=== PATIENT | female | born 1945 | race Caucasian/White ===

== ENCOUNTER → 2016-12-05 10:49 | Outpatient (CLI) | payer MEDICARE, OTHER ==
[2016-05-05 12:11] VITALS: BMI 24.9
[~2016-12-05 10:49] MED LIST: AMBIEN5 MG PO; BAYER CHEWABLE81 MG PO; BIOTIN5 MG PO; CITRACAL + D E1 EACH PO; CO Q-10200 MG PO; DEXILANT60 MG PO; GLUCOPHAGE500 MG PO; HYZAAR 50-12.51 TAB PO; KLOR-CON M2020 MEQ PO; LEXAPRO20 MG PO; PREDNISONE20 MG PO; VITAMIN D31000 UNI2 PO; ZANTAC150 MG PO; ZOCOR20 MG PO
== END | disposition home or self-care (01) ==
LOC: D.CT 10:49
DX: D86.9 Sarcoidosis, unspecified (principal)

== ENCOUNTER 2016-12-20 10:41 | Outpatient (CLI) | payer MEDICARE, OTHER ==
[~2016-12-20] VITALS: Ht 147.3 cm; Wt 53.6 kg
[2016-12-20 11:13] VITALS: BP 152/86; Ht 147.3 cm; Wt 53.6 kg
--- NOTE | 2016-12-20 11:15 | NUR ---
1105- PROLIA INJECTION TO LEFT ARM LOT#: [id number] EXP:03/06
== END 2016-12-20 11:24 | disposition home or self-care (01) ==
LOC: D.OPS 10:41
DX: M81.0 Age-related osteoporosis without current pathological fracture (principal)

== ENCOUNTER 2017-03-29 14:35 | Outpatient (CLI) | payer MEDICARE, OTHER ==
[~2017-03-29] VITALS: Ht 147.3 cm; Wt 52.3 kg
--- NOTE | ~2017-03-29 | HEMODYNAMI ---
PATIENT:JENNA MCGOWAN MEDICAL RECORD: [id number] : 43 LOCATION[facility] [id number] ADMISSION DATE: 03/29/17 Generatedon:03/30/20178:49 Patient name: JENNA MCGOWAN Patient #: [id number] SSN: DO B: 1945 Date of study: 03/30/2017 Page: Of Hemodynamic Procedure Report Patient Data Patient Demographics Procedure consent was obtained First Name: JENNA Gender: Female Last Name: ROSLYN : 1945 Middle Initial: C Age: 72 year(s) Patient #: [id number] Race: Unknown Additional ID: [id number] Contact details Address: [facility], [facility] [place] State: [place] City: [place] Zip code: [address] Past Medical History Allergies: No known allergies Admission Admission Data Admission Date: 03/29/2017 Admission Time: 14:35 Room #: 2120 Lab Results Lab Result Date: 03/30/2017 Lab Result Time: 0:00 Biochemistry Name Units Result Min Max BUN mg/dl 19 --(----)*- 7 18 Creatinine mg/dl 1.2 --(---*)-- 0.6 1.3 CBC Name Units Result Min Max Hemoglobin g/dl 15.4 --(-*--)-- 13.5 17.5 Procedure Procedure Types Cath Procedure Diagnostic Procedure [facility] w/Coronaries PCI Procedure Coronary Stent Initial Miscellaneous Procedures Moderate Sedation up to 15 minutes Procedure Description Procedure Date Procedure Date: 03/30/2017 Procedure Start Time: 8:25 Procedure End Time: 8:49 Procedure Staff Name Function Damian Bai MD Performing Physician Dell Buckley RT Scrub Yasmeen Goss RN Nurse Dhruv Monterroso RT Monitor Procedure Data Cath Procedure Fluoroscopy Diagnostic fluoroscopy Total fluoroscopy Time: 3.6 time: 3.6 min min Diagnostic fluoroscopy Total fluoroscopy dose: 424 dose: 424 mGy mGy Contrast Material Contrast Material Type Amount (ml) Isovue 300 81 Entry Location Entry Primary Successful Side Size Upsize Upsize Entry Closure Succes sful Closure Location (Fr) 1 (Fr) 2 (Fr) Remarks Device Remarks Femoral Right 5 Fr 6 Fr artery Short Diagnostic catheters Device Type Used For End Catheter Placement Cordis 5Fr Pigtail LV Angiography Catheter (MP) Cordis 5Fr JL 4.0 Left Coronary Catheter (MP) Angiography Cordis 5Fr 3DRC Catheter Right Coronary (MP) Angiography Procedure Complications No complications Procedure Medications Medication Administration Route Dosage Oxygen NC 2 l/min Heparin Flush Bag added to field 2 bags (1000units/500ml NS) Lidocaine 2% added to field 20 Heparin Bolus I.V. 4000 units Versed I.V. 1 mg Fentanyl I.V. 50 mcg Fentanyl I.V. 50 mcg Versed I.V. 1 mg Versed I.V. 1 mg Fentanyl I.V. 50 mcg Fentanyl I.V. 50 mcg Plavix P.O. 75 mg Hemodynamics Rest HGB: 15.4 (g/dl) Heart Rate: 85 (bpm) Snapshots Pre Cath Intra NCS Post Cath Vital Signs Time Heart Resp SPO2 NIBP (mmHg) Rhythm Pain Sedation Rate (ipm) (%) Status Level (bpm) 7:57:53 89 19 99 140/76(105) NSR 0 (11) 10(A) , No pain 8:02:07 86 16 99 125/67(100) NSR 0 (11) 10(A) , No pain 8:06:15 85 16 99 119/67(94) NSR 0 (11) 10(A) , No pain 8:10:25 82 15 98 107/59(85) NSR 0 (11) 10(A) , No pain 8:14:29 82 16 98 96/63(77) NSR 0 (11) 10(A) , No pain 8:18:28 83 16 95 97/58(79) NSR 0 (11) 10(A) , No pain 8:22:26 85 16 95 116/70(93) NSR 0 (11) 10(A) , No pain 8:26:28 87 18 96 127/78(98) NSR 0 (11) 10(A) , No pain 8:30:33 89 17 95 130/80(111) NSR 0 (11) 9(A) , No pain 8:34:41 75 18 96 126/72(104) NSR 0 (11) 9(A) , No pain 8:38:59 90 16 95 128/81(106) NSR 0 (11) 10(A) , No pain 8:43:05 92 15 93 138/76(107) NSR 0 (11) 10(A) , No pain 8:47:15 91 8 94 133/79(111) NSR 0 (11) 10(A) , No pain Medications Time Medication Route Dose Verified Delivered Reason Notes Effectiveness by by 7:56:25 Oxygen NC 2 Damian Yasmeen used for l/min Bhumika Goss RN procedure 7:56:35 Heparin Flush added 2 Damian Damian used for Bag to bags Bhumika Bai MD procedure (1000units/500ml field NS) 7:56:43 Lidocaine 2% added 20ml Damian Damian used for to vial Bhumika Bai MD procedure field 8:23:29 Versed I.V. 1 mg Damian Yasmeen for sedation Bhumika Goss RN 8:23:47 Fentanyl I.V. 50 Damian Yasmeen for sedation mcg Bhumika Goss RN 8:25:57 Fentanyl I.V. 50 Damian Yasmeen for sedation mcg Bhumika Goss RN 8:26:03 Versed I.V. 1 mg Damian Yasmeen for sedation Bhumika Goss RN 8:28:10 Fentanyl I.V. 50 Damian Yasmeen for sedation mcg Bhumika Goss RN 8:28:13 Versed I.V. 1 mg Damian Yasmeen for sedation Bhumika Goss RN 8:30:12 Fentanyl I.V. 50 Damian Yasmeen for sedation mcg Bhumika Goss RN 8:30:27 Heparin Bolus I.V. 4000 Damian Yasmeen for dose units Bhumika Goss RN anticoagulation verified with dr bai 8:40:02 Plavix P.O. 75 mg Damian Yasmeen for Bhumika Goss RN antiplatelet therapy Procedure Log Time Note 7:31:19 ACC Patient presents with Unstable Angina CCS Anginal Class 3--Marked limitation of physical activity, angina occurs with ordinary activity.. 7:31:21 Diagnostic Cath status Urgent 7:31:22 Dhruv Monterroso RT(R) sent for patient. Start room use. 7:31:24 Time tracking: Regular hours 7:31:28 Plan of Care:Hemodynamics will remain stable., Cardiac rhythm will remain stable., Comfort level will be maintained., Respiratory function will remain adequate., Patient/ family verbilizes understanding of procedure., Procedure tolerated without complication., Recovers from procedure without complications.. 7:32:01 Lab Result : BUN 19 mg/dl 7:32: Lab Result : Hemoglobin 15.4 g/dl 7:32: Lab Result : Creatinine 1.2 mg/dl 7:49:21 Patient received from PCU to CCL 2 Alert and oriented. Tansferred to table in Supine position. 7:49:22 Warm blankets applied, and abril hugger turned on for patient comfort. 7:49:23 Correct patient and procedure confirmed by team. 7:49:24 Signed procedure consent form obtained from patient. 7:49:24 ECG and BP/O2 sat monitors applied to patient. 7:56:25 Oxygen 2 l/min NC was administered by Yasmeen Goss RN; used for procedure; 7:56:35 Heparin Flush Bag (1000units/500ml NS) 2 bags added to field was administered by Damian Bai MD; used for procedure; 7:56:43 Lidocaine 2% 20ml vial added to field was administered by Damian Bai MD; used for procedure; 7:56:48 Vital chart was started 7:56:49 Baseline sample Acquired. 7:56:53 Rhythm: sinus rhythm 7:56:55 Full Disclosure recording started 8:04:25 H&P Date Dictated: 03/29/2017 Within 30 days and on chart.. 8:04:26 Pre-procedure instructions explained to patient. 8:04:27 Pre-op teaching completed and patient verbalized understanding. 8:04:30 Family in patients room. 8:04:47 Patient NPO since Midnight. 8:04:56 Patient allergic to No known allergies 8:04:58 Is the patient allergic to Iodine/contrast media? No. 8:05:03 Is patient on blood thinner?Yes 8:05:06 ACC The patient was administered the following blood thiners within the last 24 hours: ACCPlavix 8:05:09 Patient diabetic? No. 8:05:10 ----Pre-sedation anethsthesia assessment.---- 8:05:12 Previous problem with sedation/anesthesia? No ? 8:05:14 Snore? No 8:05:15 Sleep apnea? No 8:05:16 Deviated septum? No 8:05:18 Opens mouth fully? Yes 8:05:19 Sticks out tongue? Yes 8:05:21 Airway obstruction? No ? 8:05:24 Dentures? No ? 8:05:27 Pre procedure: right dorsailis pedis pulse 1+ Palpable, but thready & weak; easily obliterated 8:05:40 Patient pain scale 0/10 no CP RIGHT NOW. 8:05:49 IV patent on arrival in left forearm with 0.9% NaCl at 10ml/hr. 8:05:51 Lab results completed and on chart. 8:05:54 Right groin area was prepped with chlora-prep and draped in sterile fashion 8:05:55 Alarms reviewed by R. N. 8:05:56 Sharps counted by scrub and verified by R.N. 8:06:25 Use device set Femoral Dx 8:06:26 Acist Syringe opened to sterile field. 8:06:27 Bag Decanter opened to sterile field. 8:06:27 Medline Cath Pack opened to sterile field. 8:06:28 Terumo 5Fr [place] Sheath opened to sterile field. 8:06:28 St Devaughn 260cm J .035 wire opened to sterile field. 8:06:29 Acist Hand Control opened to sterile field. 8:06:30 Acist Manifold opened to sterile field. 8:06:30 Diagnostic Infinity 5Fr Multipack catheter opened to sterile field. 8:06:30 Tegaderm 4 x 4 opened to sterile field. 8:08:58 Physician paged 8:12:32 Zero performed for pressure channel P1 8:12:35 Zero performed for pressure channel P1 8:23:19 --------ALL STOP TIME OUT------ 8:23:20 Final Timeout: patient, procedure, and site verified with staff and physician. All members of the team are in agreement. 8:23:29 Versed 1 mg I.V. was administered by Yasmeen [place] RN; for sedation; 8:23:47 Fentanyl 50 mcg I.V. was administered by Yasmeen Goss RN; for sedation; 8:24:02 Right groin site verified by team. 8:24:05 Physical assessment completed. ASA score P 2 - A patient with mild systemic disease as per Damian Bai MD. 8:24:08 Sedation plan: IV Moderate Sedation Versed, Fentanyl 8:25:14 Procedure started. 8:25:26 Local anesthetic to right femoral artery with Lidocaine 2% by Damian Bai MD.INITIAL ACCESS ONLY 8:25:34 A 5 Fr sheath was inserted into the Right Femoral artery 8::57 Fentanyl 50 mcg I.V. was administered by Yasmeen Goss RN; for sedation; 8::03 Versed 1 mg I.V. was administered by Yasmeen Goss RN; for sedation; 8::29 A Cordis 5Fr Pigtail Catheter (MP) was advanced over the wire and used for LV Angiography. 8:26:41 LV angiography performed. 8:26:43 LV gram done using BARR 8:27:15 EF : 55 % 8:27:16 Catheter removed. 8:27:23 A Cordis 5Fr JL 4.0 Catheter (MP) was advanced over the wire and used for Left Coronary Angiography. 8:27:29 LCA angiography performed. 8:28:10 Fentanyl 50 mcg I.V. was administered by Yasmeen Goss RN; for sedation; 8:28:13 Versed 1 mg I.V. was administered by Yasmeen Goss RN; for sedation; 8:28:55 Catheter removed. 8:29:03 A Cordis 5Fr 3DRC Catheter (MP) was advanced over the wire and used for Right Coronary Angiography. 8:29:06 RCA angiography performed. 8:29:18 Catheter removed. 8:30:10 ACC PCI Site: mRCA has 95% stenosis. 8:30:12 Fentanyl 50 mcg I.V. was administered by Yasmeen Goss RN; for sedation; 8:30:12 ACC Pre-intervention THEODORA Flow is 3. 8:30:17 Sheath upsized to a 6 Fr Short. 8:30:27 Heparin Bolus 4000 units I.V. was administered by Yasmeen Goss RN; for anticoagulation; dose verified with dr bai 8:30:44 Terumo 6Fr [place] Sheath opened to sterile field. 8:30:45 Diggs Whisper J 300cm 0.014 guide wire opened to sterile field. 8:30:45 Zeptor BasixCompak Inflation Kit opened to sterile field. 8:30:45 Medtronic Launcher 6Fr AR 1.0 SH guide catheter opened to sterile field. 8:30:53 6 Fr AR 1 SH guide catheter was inserted over the wire 8:31:35 WHISPER wire advanced. 8:33:00 Inflation number: 1 A Mozec Rx 2.5 x 20 balloon was prepped and advanced across the Mid RCA, then inflated to 13 STELLA for 0:07 (min:sec). 8:33:11 Inflation number: 2 The Mozec Rx 2.5 x 20 balloon was reinflated across the Mid RCA, to 13 STELLA for 0:10 (min:sec). 8:34:59 Balloon removed over the wire. 8:35:51 Inflation Number: 3 A Medtronic Resolute 2.5 X 26 stent was prepped and advanced across the Mid RCA. The stent was deployed at 13 STELLA for 0:10 (min:sec). 8:35:54 Stent catheter was removed intact over wire. 8:35:55 Wire removed. 8:35:55 Guide catheter removed. 8:36:01 Contrast amount:Isovue 300 81ml. 8:36:07 Cordis 6Fr Exoseal opened to sterile field. 8:36:09 Procedure ended.(Physican Out) 8:36:22 Fluoroscopy time 03.60 minutes. 8:36:26 Fluoroscopy dose: 424 mGy 8:36:26 Flurop Dose total: 424 8:36:28 Sharps counted by scrub and verified by R.N. 8:36:29 Insertion/operative site no bleeding no hematoma. 8:36:31 Post-op/insertion site Right Femoral artery dressed using a 4 x 4 and Tegaderm. 8:36:34 Post right femoral artery:stable 8:36:36 Post Procedure Pulses reassessed and unchanged 8:36:38 Post procedure: right dorsailis pedis pulse 1+ Palpable, but thready & weak; easily obliterated. 8:36:41 Post procedure rhythm: sinus rhythm 8:36:43 Post procedure instruction explained to patient.Patient verbalizes understanding. 8:40:02 Plavix 75 mg P.O. was administered by Yasmeen Goss RN; for antiplatelet therapy; 8:40:40 St Devaughn Femstop Arch Gold opened to sterile field. 8:40:50 Procedure type changed to Cath procedure, Diagnostic procedure, LHC, C w/Coronaries, PCI procedure, Coronary Stent Initial, Miscellaneous Procedures, Moderate Sedation up to 15 minutes 8:41:13 Procedure and supply charges have been captured, reviewed, submitted and are correct. 8:42:07 Femstop placed over the right femoral artery at 128 mmHg. Hemostasis achieved. 8:43:05 FEMSTOP PLACED ON RFA BECAUSE PT HAS RESTLESS LEG SYDROME AND A BAD BACK/HEMATOMA PREVENTION DUE TO MOVING 8:43:18 Procedure Complication : No complications 8:48:40 Vital chart was stopped 8:48:41 See physician's report for complete and final results. 8:49:14 Report given to PCU. 8:49:18 Patient transfered to PCU with Bed. 8:49:20 Procedure ended. 8:49:20 Full Disclosure recording stopped 8:49:23 End room use (Document Last) Intervention Summary Intervention Notes Time ActionType Lesion and Equipment Action# Pressure Duration Attributes Used 8:33:00 Inflate Mid RCA Mozec Rx 1 13 00:07 balloon 2.5 x 20 balloon 8:33:11 Reinflate Mid RCA Mozec Rx 2 13 00:10 balloon 2.5 x 20 balloon 8:35:51 Place stent Mid RCA Medtronic 3 13 00:10 Resolute 2.5 X 26 stent Device Usage Item Name Manufacture Quantity Catalog Hospital Part Current Minimal Lot# / Number Charge Number Stock Stock Serial# Code Acist Acist 1 82598 240583 190174 976943 20 Syringe [employer] Inc Bag Microtek 1 2002S 460003 41319 642290 5 [employer]. Medline Cardinal 1 [id number] 694328 54067 182456 5 Cath Digital Lifeboat Terumo 5Fr Terumo 1 [id number] 402654 067223 151564 [address] Devaughn 1 106761 671856 482210 743547 30 260cm J .035 wire Acist Hand Acist 1 66728 120964 858852 225103 5 [employer] Acist Acist 1 75035 173181 402578 282557 5 MyVerse [employer] Inc Diagnostic Cardinal 1 [id number] 353199 68496 870465 30 Infinity Health 5Fr Multipack catheter Tegaderm 4 3M 1 1626W 337251 503622 087236 5 x 4 Cordis 5Fr Cardinal 1 161366 5 Pigtail Health Catheter (MP) Cordis 5Fr Cardinal 1 926220 5 JL 4.0 Health Catheter (MP) Cordis 5Fr Cardinal 1 351686 5 3DRC Health Catheter (MP) Terumo 6Fr Terumo 1 NUI299 340058 179148 088279 40 [place] Sheath Diggs Diggs 1 [id number] 643594 443930 884398 5 Whisper J Vascular 300cm 0.014 guide wire Merit Merit 1 [id number] 836425 524232 892688 15 QualQuant SignalsMountain Point Medical CenterTableApp Medical Inflation Kit Medtronic Medtronic 1 [id number] 784920 63428 129266 1 Launcher 6Fr AR 1.0 SH guide catheter Mozec Rx Cardinal 1 [id number] 344911 23005 347093 5 UMOA34 2.5 x 20 Health balloon Medtronic Medtronic 1 [id number] 000942 013986 3 [id number] Resolute 2.5 X 26 stent Cordis 6Fr Cardinal 1 EX600 290962 043134 956833 10 [employer] [facility] [facility] Dev[address] St Devaughn 1 [id number] 266874 985685 124905 5 Femstop Arch Gold Signature Audit [place] Stage Time Signature Unsigned Intra-Procedure 03/30/2017 Dhruv Monterroso 8:49:47 AM RT(R) Signatures Monitor : Dhruv Monterroso RT Signature : Date : Time : [facility] [address] [place], [place] [address]
--- NOTE | ~2017-03-29 | DS ---
PATIENT:JENNA MCGOWAN :43 MEDICAL RECORD: [id number] DISCHARGE SUMMARY ADMISSION DATE: 03/29/17 DISCHARGE DATE: 03/31/17 DISCHARGE SUMMARY PROBLEM LIST: 1. Unstable angina. 2. Coronary artery disease. 3. Percutaneous transluminal coronary angioplasty stent right coronary artery and left circumflex this admission. HOSPITAL COURSE: The patient presents with unstable angina. She was found to have two vessel disease of the right coronary artery and left circumflex. She underwent successful percutaneous transluminal coronary angioplasty stent of both territories. PLAN: She was discharged home with the addition of aspirin and Plavix to her medical regimen. She will follow up with [facility] in one month. CHAD FOSTER MD CC: [id number] DICTATION DATE: 03/31/17 0800 AGENCY LEGAL COUNSEL: RAMAKRISHNA 03/31/17 1546 DEP CLI 03/31/17 [facility] [address] [place] [address]
--- NOTE | ~2017-03-29 | PRO ---
PATIENT:JENNA MCGOWAN MEDICAL RECORD: [id number] : 43 LOCATION:D.OPS ADMISSION DATE: 03/29/17 PROCEDURE PERFORMED BY: CHAD FOSTER MD PROCEDURE DATE: 03/31/17 PROCEDURES: 1. Percutaneous transluminal coronary angioplasty stent left circumflex. 2. Selective coronary angiography. INDICATION: 1. Angina. 2. Coronary artery disease. PROCEDURE IN DETAIL: After informed consent was obtained and after detailed explanation of risks, benefits, as well as alternative therapies, the patient elected to proceed with angiogram and angioplasty. The right radial area was prepped and draped in a normal sterile fashion. The right radial artery was cannulated via modified Seldinger technique with placement of 6-Marshallese sheath. All catheters exchanged through this sheath. FINDINGS: The left circumflex has a 90% stenosis in the mid distal vessel. This was addressed with a 3.0 X 15 millimeter Sahil stent. The result was 0% residual stenosis. OVERALL IMPRESSION: Successful percutaneous transluminal coronary angioplasty stent of the left circumflex going from 90% initial stenosis to 0% residual stenosis. CHAD FOSTER MD CC: [id number] DICTATION DATE: 03/31/172135 TALLIER: JMADELEINE 03/31/172134 DEP CLI 03/31/17 [facility] [address] [id number]
--- NOTE | ~2017-03-29 | OP ---
PATIENT NAME: JENNA MCGOWAN MEDICAL RECORD: [id number] :43 LOCATION:D.M2 D.2119 ADMISSION DATE: SURGEON: CHAD FOSTER MD OPERATION DATE: 03/30/17 PROCEDURES: 1. Percutaneous transluminal coronary angioplasty stent right coronary artery. 2. Left heart catheterization. 3. Selective coronary angiography. 4. Left ventriculogram. INDICATION: Unstable angina. PROCEDURE IN DETAIL: After informed consent was obtained and after detailed explanation of risks, benefits, as well as alternative therapies, the patient elected to proceed with angiogram and angioplasty. The right femoral area was prepped and draped in a normal sterile fashion. The right femoral artery was cannulated via modified Seldinger technique with placement of 6-Maltese sheath. All catheters exchanged through this sheath. FINDINGS: Left ventriculogram was performed in standard 30 degree BARR view, reveals good cardiac wall motion throughout all segments. Overall ejection fraction estimated 55-60%. SELECTIVE CORONARY ANGIOGRAPHY: 1. Left main is with no significant angiographic disease. 2. Left anterior descending has mild irregularities but no flow-limiting stenosis. 3. The left circumflex has an 80-90% stenosis in the mid vessel. 4. The right coronary artery has a 95% stenosis in the mid vessel. PTCA STENT OF THE RIGHT CORONARY ARTERY: The stent used was a 2.5 X 26 millimeter Resolute. The result was 0% residual stenosis. OVERALL IMPRESSION: Successful percutaneous transluminal coronary angioplasty stent of the right coronary artery going from 95% initial stenosis to 0% residual stenosis. PLAN: Will plan for percutaneous transluminal coronary angioplasty stent of the left circumflex in the near future. CHAD FOSTER MD CC: [id number] DICTATION DATE: 03/30/17 1400 TECHNICAL SOLUTIONS ENGINEER: DM 03/31/[address] [facility] [address] [place] [address]
--- NOTE | ~2017-03-29 | HEMODYNAMI ---
PATIENT:JENNA MCGOWAN MEDICAL RECORD: [id number] : 43 LOC[facility] [id number] ADMISSION DATE: 03/29/17 Generatedon:03/31/20179:28 Patient name: JENNA MCGOWAN Patient #: [id number] SSN: DO B: 1945 Date of study: 03/31/2017 Page: Of Hemodynamic Procedure Report Patient Data Patient Demographics Procedure consent was obtained First Name: JENNA Gender: Female Last Name: ROSLYN : 1945 Middle Initial: C Age: 72 year(s) Patient #: [id number] Race: Unknown Additional ID: [id number] Contact details Address: [facility] [employer] State: [place] City: [place] Zip code: [address] Past Medical History Allergies: No known allergies Admission Admission Data Admission Date: 03/29/2017 Admission Time: 14:35 Room #: 2120 Lab Results Lab Result Date: 03/30/2017 Lab Result Time: 0:00 Biochemistry Name Units Result Min Max BUN mg/dl 19 --(----)*- 7 18 Creatinine mg/dl 1.2 --(---*)-- 0.6 1.3 CBC Name Units Result Min Max Hemoglobin g/dl 15.4 --(-*--)-- 13.5 17.5 Procedure Procedure Types Cath Procedure PCI Procedure Coronary Stent Initial Miscellaneous Procedures Moderate Sedation up to 15 minutes Procedure Description Procedure Date Procedure Date: 03/31/2017 Procedure Start Time: 9:14 Procedure End Time: 9:27 Procedure Staff Name Function Damian Bai MD Performing Physician Dhruv Monterroso RT Scrub Yasmeen Goss RN Nurse Dell Buckley RT Monitor Procedure Data Cath Procedure Fluoroscopy Diagnostic fluoroscopy Total fluoroscopy Time: 2.9 time: 2.9 min min Diagnostic fluoroscopy Total fluoroscopy dose: 216 dose: 216 mGy mGy Contrast Material Contrast Material Type Amount (ml) Isovue 300 43 Entry Location Entry Primary Successful Side Size Upsize Upsize Entry Closure Walter ccessful Closure Location (Fr) 1 (Fr) 2 (Fr) Remarks Device Remarks Radial Right 6 Fr Mechanical artery Short Compression Estimated blood loss: 10 ml Procedure Complications No complications Procedure Medications Medication Administration Route Dosage Oxygen NC 2 l/min Heparin Flush Bag added to field 2 bags (1000units/500ml NS) Lidocaine 2% added to field 20 Fentanyl I.V. 50 mcg Radial Cocktail added to field 1 syringe (Verapomil 2mg/Nitro 400mcg/Heparin 1500units) Fentanyl I.V. 50 mcg Versed I.V. 1 mg Heparin Bolus I.V. 4000 units Radial Cocktail added to field 1 syringe (Verapomil 2mg/Nitro 400mcg/Heparin 1500units) Fentanyl I.V. 50 mcg Versed I.V. 1 mg Hemodynamics Rest HGB: 15.4 (g/dl) Heart Rate: 96 (bpm) Snapshots Pre Cath Intra NCS Post Cath Vital Signs Time Heart Resp SPO2 NIBP (mmHg) Rhythm Pain Status Sedation Rate (ipm) (%) Level (bpm) 8:49:57 96 18 98 163/90(130) NSR 7 (11) , Very 10(A) intense 8:54:15 96 17 97 163/82(113) NSR 5 (11) , Very 10(A) distressing 8:58:33 92 16 100 138/74(105) NSR 2 (11) , 10(A) Uncomfortable 9:02:43 94 15 100 135/77(106) NSR 0 (11) , No 10(A) pain 9:06:48 96 16 100 147/84(111) NSR 0 (11) , No 10(A) pain 9:11:00 97 14 100 137/77(112) NSR 0 (11) , No 10(A) pain 9:15:10 105 15 100 138/82(122) NSR 0 (11) , No 9(A) pain 9:19:18 97 16 97 85/51(61) NSR 0 (11) , No 9(A) pain 9:23:14 101 13 98 95/62(76) NSR 0 (11) , No 10(A) pain Medications Time Medication Route Dose Verified Delivered Reason Notes Effectiveness by by 8:49:03 Oxygen NC 2 l/min Damian Alvarezecca Per physician Bhumika Goss RN 8:49:12 Heparin Flush added 2 bags Damian Damian used for Bag to Bhumika Bai MD procedure (1000units/500ml field NS) 8:49:20 Fentanyl I.V. 50 mcg Damian Yasmeen for back pain pt c\ o 7/10 Bhumika Goss RN sciatic nerve pain. pt is unable to tolerate lying flat on table. pt has pillow elevating her left hip, also a towel roll placed under pt knees. pt upper body is elevated on wedge pillow, per pt request. Dr bai is aware of pt condition, and pain interventions. 8:49:20 Lidocaine 2% added 20ml Damian Damian used for to vial Bhumika Bai MD procedure field 8:52:41 Radial Cocktail added 1 Damian Damian used for (Verapomil to syringe Bhumika Bai MD procedure 2mg/Nitro field 400mcg/Heparin 1500units) 9:00:04 Fentanyl I.V. 50 mcg Damian Damian for back pain pt c\ o 5/10 Bhumika Bai MD sciatic nerve pain. pt is unable to tolerate lying flat on table. pt has pillow elevating her left hip, also a towel roll placed under pt knees. pt upper body is elevated on wedge pillow, per pt request. Dr bai is aware of pt condition, and pain interventions. 9:09:14 Versed I.V. 1 mg Damian Yasmeen for sedation Bhumika Goss RN 9:12:03 Versed I.V. 1 mg Damian Yasmeen for sedation Bhumika Goss RN 9:12:45 Fentanyl I.V. 50 mcg Damian Yasmeen for sedation Bhumika Goss RN 9:15:00 Radial Cocktail added 1 Damian Yasmeen used for (Verapomil to syringe Bhumika Goss RN procedure 2mg/Nitro field 400mcg/Heparin 1500units) 9:17:36 Heparin Bolus I.V. 4000 Damian Yasmeen for dose verified units Bhumika Goss RN anticoagulation with dr bai Procedure Log Time Note 8:20:21 Dhruv Monterroso RT(R) sent for patient. Start room use. 8:28:22 Time tracking: Regular hours 8:28:25 Plan of Care:Hemodynamics will remain stable., Cardiac rhythm will remain stable., Comfort level will be maintained., Respiratory function will remain adequate., Patient/ family verbilizes understanding of procedure., Procedure tolerated without complication., Recovers from procedure without complications.. 8:39:13 Patient received from PCU to CCL 2 Alert and oriented. Tansferred to table in Supine position. 8:39:14 Warm blankets applied, and abril hugger turned on for patient comfort. 8:39:14 Correct patient and procedure confirmed by team. 8:39:15 Signed procedure consent form obtained from patient. 8:39:16 ECG and BP/O2 sat monitors applied to patient. 8:48:51 Vital chart was started 8:49:03 Oxygen 2 l/min NC was administered by Yasmeen Goss RN; Per physician; 8:49:12 Heparin Flush Bag (1000units/500ml NS) 2 bags added to field was administered by Damian Bai MD; used for procedure; 8:49:20 Fentanyl 50 mcg I.V. was administered by Yasmeen Goss RN; for back pain; pt c\o 7/10 sciatic nerve pain. pt is unable to tolerate lying flat on table. pt has pillow elevating her left hip, also a towel roll placed under pt knees. pt upper body is elevated on wedge pillow, per pt request. Dr bai is aware of pt condition, and pain interventions. 8:49:20 Lidocaine 2% 20ml vial added to field was administered by Damian Bai MD; used for procedure; 8:52:41 Radial Cocktail (Verapomil 2mg/Nitro 400mcg/Heparin 1500units) 1 syringe added to field was administered by Damian Bai MD; used for procedure; 9:00:04 Fentanyl 50 mcg I.V. was administered by Damian Bai MD; for back pain; pt c\o 5/10 sciatic nerve pain. pt is unable to tolerate lying flat on table. pt has pillow elevating her left hip, also a towel roll placed under pt knees. pt upper body is elevated on wedge pillow, per pt request. Dr bai is aware of pt condition, and pain interventions. 9:04:29 Baseline sample Acquired. 9:04:33 Rhythm: sinus rhythm 9:04:35 Full Disclosure recording started 9:04:41 H&P Date Dictated: 03/30/2017 Within 30 days and on chart.. 9:04:42 Pre-procedure instructions explained to patient. 9:04:42 Pre-op teaching completed and patient verbalized understanding. 9:04:44 Family in patients room. 9:04:45 Patient NPO since Midnight. 9:04:47 Is the patient allergic to Iodine/contrast media? No. 9:04:51 Is patient on blood thinner?Yes 9:04:53 ACC The patient was administered the following blood thiners within the last 24 hours: ACCPlavix 9:04:56 Patient diabetic? No. 9:05:00 Patient not . Patient is over age 55. 9:05:01 Previous problem with sedation/anesthesia? No ? 9:05:02 Snore? No 9:05:03 Sleep apnea? No 9:05:09 Deviated septum? No 9:05:10 Opens mouth fully? Yes 9:05:11 Sticks out tongue? Yes 9:05:13 Airway obstruction? No ? 9:05:16 Dentures? No ? 9:05:50 Pre procedure: left dorsailis pedis pulse 1+ Palpable, but thready & weak; easily obliterated 9:05:52 Modified Sylvester's test Ulnar < 7 seconds 9:05:54 Patient pain scale 0/10 ?. 9:05:58 IV patent on arrival in left forearm with 0.9% NaCl at KVO. 9:05:59 Lab results completed and on chart. 9:06:03 Right Radial & Left Groin area was prepped with chlora-prep and draped in sterile fashion 9:06:04 Alarms reviewed by R. N. 9:06:05 Sharps counted by scrub and verified by R.N. 9:06:08 Use device set Radial PCI 9:06:11 Tegaderm 4 x 4 opened to sterile field. 9:06:11 Acist Manifold opened to sterile field. 9:06:13 Acist Syringe opened to sterile field. 9:06:13 Acist Hand Control opened to sterile field. 9:06:13 Bag Decanter opened to sterile field. 9:06:14 Medline Cath Pack opened to sterile field. 9:06:14 Merit BasixCompak Inflation Kit opened to sterile field. 9:06:15 Terumo 6Fr Slender Glidesheath opened to sterile field. 9:06:15 MBrace Wrist Support opened to sterile field. 9:06:15 St Devaughn 260cm J .035 wire opened to sterile field. 9:06:16 Diggs Whisper J 300cm 0.014 guide wire opened to sterile field. 9:08:51 --------ALL STOP TIME OUT------ 9:08:51 Final Timeout: patient, procedure, and site verified with staff and physician. All members of the team are in agreement. 9:09:11 Right Radial & Left Groin site verified by team. 9::14 Versed 1 mg I.V. was administered by Yasmeen Goss RN; for sedation; 9::14 Physical assessment completed. ASA score P 2 - A patient with mild systemic disease as per Damian Bai MD. 9:09:16 Sedation plan: IV Moderate Sedation Versed, Fentanyl 9:12:03 Versed 1 mg I.V. was administered by Yasmeen Goss RN; for sedation; 9:12:45 Fentanyl 50 mcg I.V. was administered by Yasmeen Goss RN; for sedation; 9:14:10 Procedure started. 9:14:18 Local anesthetic to right radial artery with Lidocaine 2% by Damian Bai MD.INITIAL ACCESS ONLY 9:14:58 A 6 Fr Short sheath was inserted into the Right Radial artery 9:15:00 Radial Cocktail (Verapomil 2mg/Nitro 400mcg/Heparin 1500units) 1 syringe added to field was administered by Yasmeen Goss RN; used for procedure; 9:15:09 Zero performed for pressure channel P1 9:15:11 Zero performed for pressure channel P1 9:15:23 Cordis 6FR XBLAD 3.5 guide catheter opened to sterile field. 9:15:55 6 Fr XBLAD 3.5 guide catheter was inserted over the wire 9:16:25 Glidewire used to advance catheter. 9:16:54 Terumo ADVANTAGE 260CM glide wire opened to sterile field. 9:17:36 Heparin Bolus 4000 units I.V. was administered by Yasmeen Goss RN; for anticoagulation; dose verified with dr bai 9:18:05 ACC PCI Site: dCirc has 90% stenosis. 9:18:08 ACC Pre-intervention THEODORA Flow is 3. 9:18:42 Whisper wire advanced. 9:21:00 Wire advanced across lesion. 9:21:21 Inflation Number: 1 A Sahil OTW 3.0 x 15 stent was prepped and advanced across the Dist CX. The stent was deployed at 9 STELLA for 0:10 (min:sec). 9:21:40 ACC Post-intervention THEODORA Flow is 3. 9:21:41 Stent catheter was removed intact over wire. 9:21:42 Wire removed. 9:21:42 Guide catheter removed. 9:21:52 Sheath removed intact; hemostasis achieved with Mechanical Compression to the Right Radial artery. 9:21:59 Terumo TR Band Standard opened to sterile field. 9:22:03 Procedure ended.(Physican Out) 9:22:14 Fluoroscopy time 02.90 minutes. 9:22:18 Flurop Dose total: 216 9:22:18 Fluoroscopy dose: 216 mGy 9:22:24 Contrast amount:Isovue 300 43ml. 9:22:29 Sharps counted by scrub and verified by R.N. 9:22:32 TR band inflated with 12cc of air. 9:22:33 Insertion/operative site no bleeding no hematoma. 9:22:34 Post Procedure Pulses reassessed and unchanged 9:22:38 Post-procedure physical assessment completed. ASA score P 2 - A patient with mild systemic disease as per Damian Bai MD. 9:22:40 Post procedure rhythm: unchanged. 9:22:43 Estimated blood loss: 10 ml 9:22:45 Post procedure instruction explained to patient.Patient verbalizes understanding. 9:22:45 Patient needs reinforcement of post procedure teaching. 9:22:50 Procedure type changed to Cath procedure, PCI procedure, Coronary Stent Initial, Miscellaneous Procedures, Moderate Sedation up to 15 minutes 9:22:56 Procedure Complication : No complications 9:26:15 Procedure and supply charges have been captured, reviewed, submitted and are correct. 9:27:25 Vital chart was stopped 9:27:25 See physician's report for complete and final results. 9:27:26 Report given to PCU. 9:27:28 Patient transfered to PCU with Bed. 9:27:30 Procedure ended. 9:27:30 Full Disclosure recording stopped 9:27:33 End room use (Document Last) Intervention Summary Intervention Notes Time ActionType Lesion and Equipment Action# Pressure Duration Attributes Used 9:21:21 Place stent Dist CX [place] OTW 1 9 00:10 3.0 x 15 stent Device Usage Item Name Manufacture Quantity Catalog Hospital Part Current Minimal Lot# / Number Charge Number Stock Stock Serial# Code Tegaderm 4 3M 1 [id number] [id number] [id number] 5 x 4 Acist Acist 1 53559 347213 075319 663521 5 Manifold Medical Systems Inc Acist Acist 1 10869 506222 031292 421983 20 Syringe Medical Systems Inc Acist Hand Acist 1 41949 566850 883830 189728 5 Control Medical Systems [employer] Bag Microtek 1 2002S 594361 19403 236981 5 DecGlideTV Medical Inc. Medline Cardinal 1 [id number] 653381 82483 439613 5 Cath [facility] Merit 1 [id number] 160125 383665 072693 15 Sawerly Medical Inflation Kit Terumo 6Fr Terumo 1 [id number] 863790 123828 329427 40 Slender Glidesheath MBrace Advanced 1 140-0250-00 048349 57281 189836 5 Wrist V[address] Support Dynamics St Devaughn St Devaughn 1 175253 579328 885127 998866 30 260cm J .035 wire Cordis 6FR Cardinal 1 [id number] 895054 847239 011108 10 XBLAD 3.5 Health guide catheter Terumo Terumo 1 [id number] 828935 682748 5 ADVANTAGE 260CM glide wire [place] OTW Medtronic 1 [id number] 210423 165965 583542 5 [id number] 3.0 x 15 stent Terumo TR Terumo 1 [id number] 856185 931355 962683 40 Band Standard Diggs Diggs 1 [id number] 209354 591964 536013 5 Whisper J Vascular 300cm 0.014 guide wire Signature Audit [place] Stage Time Signature Unsigned Intra-Procedure 03/31/2017 Dell Buckley 9:28:13 AM RT(R) Signatures Monitor : Dell Buckley RT Signature : Date : Time : [address] [place] [address]
[2017-03-29 15:25] LABS: BASOPHILS 0.3 % (0-2); EOSINOPHILS 0.2 % (0-7); HEMOGLOBIN 15.4 g/dL (12-16); IMMATURE GRANULOCYTES 0.4 % (0-5); LYMPHOCYTES 17.6 % (15-50); MCH 31.5 pg (26.0-34.0); MEAN PLATELET VOLUME 11.5 fL (7.4-10.4); MONOCYTES 5.4 % (2-11); NEUTROPHILS 76.1 % (40-80); PLATELET COUNT 172 10x3/uL (130-400); RBC 4.89 10x6/uL (4.00-5.40); RDW 12.7 % (11.5-14.5); WBC 11.2 10x3/uL (4.8-10.8)
[2017-03-29 15:42] LABS: ALKALINE PHOSPHATASE 107 U/L (46-116); ALT (SGPT) 40 U/L (10-68); BILIRUBIN - TOTAL 0.77 mg/dL (0.2-1.3); CALC OSMOLALITY 294 mosm/kg (275-300); CALCIUM 9.5 mg/dL (8.5-10.1); CARBON DIOXIDE 20.4 mmol/L (21.0-32.0); CHLORIDE - SERUM 103 mmol/L (98-107); CKMB 3.2 U/L (0.0-3.6); CREATINE KINASE 122 UL (21-215); GLUCOSE 250 mg/dL (74-106); POTASSIUM - SERUM 3.3 mmol/L (3.5-5.1); PROTEIN - SERUM 6.9 g/dL (6.4-8.2); SODIUM 143 mmol/L (136-145); TROPONIN-I 0.045 ng/mL (0.000-0.060); UREA NITROGEN 19 mg/dL (7-18)
[2017-03-29 15:49] LABS: CREATININE - SERUM 1.2 mg/dL (0.6-1.3); eGFR NON AFRICAN AMERICAN 47 mL/min (90-120)
--- NOTE | 2017-03-29 17:59 | NUR ---
TRANSFER FROM ER BY W/C. RONALDINTED TO ROOM. CALL LIGHT IN REACH. WILL CONT. PLAN OF CARE.
[2017-03-29 18:20] VITALS: BMI 24.0
[2017-03-29] MEDS ORDERED: ULTRAM50 MG PO (18:33)
[2017-03-29] MEDS ORDERED: FOLATE0.4 MG PO (18:37)
[2017-03-29] MEDS ORDERED: PREDNISONE20 MG PO (18:38)
[2017-03-29] MEDS ORDERED: PROLIA INJ 660 MG/M1 IJ (18:41)
--- NOTE | 2017-03-29 20:11 | NUR ---
RESUMED CARE OF PT, LYING IN BED RESPIRATIONS EVEN AND UNLABORED ON 2LPM VIA NC. LEFT HAND SALINE LOCKED. 76 SR ON TELEMETRY. CALL LIGHT IN REACH. WILL CONTINUE TO MONITOR. SEE NURSE ASSESSMENT.
[2017-03-29 21:05] VITALS: BP 161/78
--- NOTE | 2017-03-29 23:45 | NUR ---
LEARNING SOLUTIONS SPECIALIST AT BEDSIDE TO OBTAIN VITALS, CALL LIGHT IN REACH. WILL CONTINUE WITH PLAN OF CARE.
[2017-03-30 01:19] VITALS: BP 160/88
[2017-03-30 06:18] VITALS: BP 119/52
--- NOTE | 2017-03-30 06:23 | NUR ---
NO CHANGES FROM PREVIOUS ASSESSMENT, UP TO SHOWER. LINENS CHANGED.
--- NOTE | 2017-03-30 07:06 | NUR ---
AM ROUNDS- PT IN BED, DENIES ANY NEEDS AT THIS TIME. LT HAND IV SL. BED LOW AND WHEELS LOCKED, BED RAILSX2, CALL LIGHT IN REACH, NAD NOTED, WILL CONTINUE TO MONITOR.
--- NOTE | 2017-03-30 07:45 | NUR ---
PRE-OP MEDS GIVEN AT THIS TIME. AND TAKEN TO LAB, NAD NOTED.
--- NOTE | 2017-03-30 09:00 | NUR ---
RECEIVED PT BACK TO ROOM 2119. FEMSTOP NOTED TO RT GROIN, PULSE PALPABLE, NO BLEEDING OR HEMATOMA NOTED TO SITE. VITAL SIGNS STABLE. PT STILL C/O PAIN TO HER HIP. 5435- PAGED DR. FOSTER FOR SOMETHING FOR PAIN. INFORMED HIM THAT PT STATED THAT SHE USUALLY TAKES TORADOL. NEW ORDER FOR TORADOL 20MG Q4PRN, AND NORCO 10MG Q4PRN.
--- NOTE | 2017-03-30 10:41 | NUR ---
NORCO 10MG GIVEN FOR PAIN LEVEL OF 5/10. PT REMINDED TO KEEP RT LEG STRAIGHT. PT DENIES ANY OTHER NEEDS AT THIS TIME. CALL LIGHT IN REACH, FAMILY AT BEDSIDE, NAD NOTED, WILL CONTINUE TO MONITOR.
[2017-03-30 12:14] VITALS: BP 103/59
[2017-03-30 12:19] VITALS: Ht 147.3 cm; Wt 52.3 kg
--- NOTE | 2017-03-30 13:40 | NUR ---
PT STATED THAT SHE TOLD ME THE WRONG NAME OF THE MEDICATIONS THAT SHE TAKES AT HOME. SHE TAKES TRAMADOL NOT TORODOL. WILL NOTIFY DR. FOSTER AND GET NEW ORDER FOR TRAMADOL INSTEAD OF TORODOL.
[2017-03-30 15:46] VITALS: BP 108/62
[2017-03-30 19:00] VITALS: BP 124/60
--- NOTE | 2017-03-30 19:35 | NUR ---
RESUMED CARE OF PT, LYING IN BED RESPIRATIONS EVEN AND UNLABORED ON 2LPM VIA NC. 84 SR ON TELEMETRY. LEFT HAND SALINE LOCKED. SMALL HEMATOMA NOTED TO RIGHT GROIN CATH SITE, STRONG PEDAL PULSE NOTED. PLAN OF CARE DISCUSSED, NPO AT MIDNIGHT. CALL LIGHT IN REACH. SEE NURSE ASSESSMENT.
[2017-03-31] VITALS: BP 136/65
[2017-03-31 04:00] VITALS: BP 157/71
--- NOTE | 2017-03-31 07:38 | NUR ---
ASSESSMENT DONE. DENIES NEEDS. FAMILY AT SIDE.
--- NOTE | 2017-03-31 07:56 | NUR ---
PUBLIC SPEAKING COACH AT BS ASSISTING WITH NEEDS. CALL LIGHT IN REACH. WILL CONT. PLAN OF CARE.
[2017-03-31 08:12] VITALS: BP 153/80
--- NOTE | 2017-03-31 08:45 | NUR ---
TO CHANGE MANAGEMENT COORDINATOR PER BED
--- NOTE | 2017-03-31 09:40 | NUR ---
RETURN FROM CAPONIZER PER BED, TR-BAND TO RT WRIST.FAMILY AT SIDE.
[2017-03-31] MEDS ORDERED: PLAVIX75 MG PO (10:37)
--- NOTE | 2017-03-31 11:01 | HP ---
PATIENT: JENNA MCGOWAN MEDICAL RECORD: [id number] ACCOUNT: [id number] LOCATION:[address]19 : 44 ADMISSION DATE: 03/29/17 HISTORY AND PHYSICAL EXAMINATION PROBLEM LIST: 1. Non-Q wave myocardial infarction. 2. Angina, unstable. 3. Hypertension. 4. Hyperlipidemia. 5. Family history of coronary artery disease. HISTORY OF PRESENT ILLNESS: The patient has no previous cardiac history herself. She began having chest pain this week. Her chest pain worsened today. She went to Dr. Dc's office. She has ST-T changes laterally. Her troponin is minimally elevated. She is not having chest pain now. Her blood pressure is still up. It was initially 200 systolically. It is now in the 180 systolic range. She does have a history of hypertension for which she is on losartan and hyperlipidemia for which she is on simvastatin. PHYSICAL EXAMINATION: HEAD, EYES, EARS, NOSE, AND THROAT: Benign. NECK: Supple. No jugular venous distention. Carotid upstroke plus two bilaterally without bruits. LUNGS: Overall clear to auscultation and percussion. HEART: Regular. Normal S1, normal S2. No S3, no S4. No murmurs. BONES, JOINTS, EXTREMITIES: No clubbing, cyanosis, or edema. OVERALL IMPRESSION: Chest pain, non-Q wave myocardial infarction. No doubt she has hemodynamically significant coronary artery disease. Will proceed with coronary angiography in the morning. Further care depends upon the findings of the angiography. CHAD FOSTER MD at 1101 CC: [id number] DICTATION DATE: 03/29/17 1200 [employer] DE[employer]: RAMAKRISHNA 03/30/17 0906 [facility] [address] [place] [place] [id number]
[2017-03-31 12:13] VITALS: BP 138/70
--- NOTE | 2017-03-31 13:50 | NUR ---
DC AND RX GIVEN TO PT
--- NOTE | 2017-03-31 14:52 | NUR ---
DC HOME PER PERSONAL CAR
== END 2017-03-31 14:53 | disposition home or self-care (01) ==
LOC: D.M2 14:35 → D.ER 14:35 → D.OPS 14:35 → D.M2 16:38 → EDSTATUS 03-30 10:45 → D.OPS 03-31 14:53
PROVIDERS: Emergency Medicine
DX: I25.110 Atherosclerotic heart disease of native coronary artery with unstable angina pectoris (principal); Z01.812 Encounter for preprocedural laboratory examination; R07.9 Chest pain, unspecified
CPT/HCPCS: 93458; C9600 ×2

== ENCOUNTER 2017-12-28 12:35 | Outpatient (CLI) | payer MEDICARE, OTHER ==
[~2017-12-28] VITALS: Ht 147.3 cm; Wt 47.7 kg
[~2017-12-28 12:35] MED LIST changes: +FOLATE0.4 MG PO; +PLAVIX75 MG PO; +PROLIA INJ 660 MG/M1 IJ; +ULTRAM50 MG PO
[2017-12-28 13:14] VITALS: BP 170/90; Ht 147.3 cm; Wt 47.7 kg
[2017-12-28] MEDS ORDERED: PROTONIX40 MG PO (13:19)
[2017-12-28] MEDS ORDERED: LEXAPRO10 MG PO (13:20)
== END 2017-12-28 13:25 | disposition home or self-care (01) ==
LOC: D.OPS 12:35
DX: M81.0 Age-related osteoporosis without current pathological fracture (principal)

== ENCOUNTER → 2018-02-26 08:47 | Outpatient (CLI) | payer MEDICARE, OTHER ==
[~2018-02-26] VITALS: Ht 147.3 cm; Wt 47.7 kg
--- NOTE | ~2018-02-26 | HEMODYNAMI ---
PATIENT:JENNA MCGOWAN MEDICAL RECORD: [id number] : 43 LOCATION:[facility] ADMISSION DATE: 02/26/18 Generatedon:02/26/201812:23 Patient name: JENNA MCGOWAN Patient #: [id number] SSN: DO B: 1945 Date of study: 02/26/2018 Page: Of Hemodynamic Procedure Report Patient Data Patient Demographics Procedure consent was obtained First Name: JENNA Gender: Female Last Name: ROSLYN : 1945 [facility] Initial: C Age: 73 year(s) Patient #: [id number] Race: Unknown Additional ID: [id number] Contact details Address: [address] State: [place] City: [place] Zip code: [address] Past Medical History Allergies: No known allergies Admission Admission Data Admission Date: 02/26/2018 Admission Time: 8:47 Lab Results Lab Result Date: 02/26/2018 Lab Result Time: 0:00 Biochemistry Name Units Result Min Max BUN mg/dl 16 --(---*)-- 7 18 Creatinine mg/dl 0.9 --(-*--)-- 0.6 1.3 CBC Name Units Result Min Max Hemoglobin g/dl 14.2 --(*---)-- 13.5 17.5 Procedure Procedure Types Cath Procedure Diagnostic Procedure [facility] w/Coronaries FFR/IVUS Intra-Coronary IVUS Initial PCI Procedure Coronary Stent Coronary Stent Initial Procedure Description Procedure Date Procedure Date: 02/26/2018 Procedure Start Time: 12:07 Procedure End Time: 12:21 Procedure Staff Name Function Damian Bai MD Performing Physician Yudy Miles RT Monitor Krzysztof Pop RN Nurse Thu Brown RT Scrub Procedure Data Cath Procedure Fluoroscopy Diagnostic fluoroscopy Total fluoroscopy dose: 254 dose: 254 mGy mGy Contrast Material Contrast Material Type Amount (ml) Isovue 300 72 Entry Location Entry Primary Successful Side Size Upsize Upsize Entry Closure Walter ccessful Closure Location (Fr) 1 (Fr) 2 (Fr) Remarks Device Remarks Radial Right 6 Fr Mechanical artery Short Compression Estimated blood loss: 10 ml Diagnostic catheters Device Type Used For End Catheter Placement DIAGNOSTIC [place] 110cm 5 Procedure Fr catheter ([id number]) Procedure Complications No complications Procedure Medications Medication Administration Route Dosage 0.9% NaCl I.V. 100 ml/hr Oxygen etCO2 Nasal cannula 2 l/min Heparin Flush Bag added to field 2 bags (1000units/500ml NS) Lidocaine 2% added to field 20 Radial Cocktail added to field 1 syringe (Verapomil 2mg/Nitro 400mcg/Heparin 1500units) Versed I.V. 1 mg Fentanyl I.V. 50 mcg Versed I.V. 0.5 mg Fentanyl I.V. 25 mcg Radial Cocktail I.A. 1 syringe (Verapomil 2mg/Nitro 400mcg/Heparin 1500units) Versed I.V. 0.5 mg Fentanyl I.V. 25 mcg Heparin Bolus I.V. 4000 units Integrilin (Bolus I.V. 4.5 ml 2mg/ml) Integrilin (Bolus wasted 5.5 ml 2mg/ml) Plavix P.O. 600 mg Hemodynamics Rest HGB: 14.2 (g/dl) Heart Rate: 75 (bpm) Snapshots Pre Cath Intra NCS Post Cath Vital Signs Time Heart Resp SPO2 etCO2 NIBP (mmHg) Rhythm Pain Sedation Rate (ipm) (%) (mmHg) Status Level (bpm) 12:02:05 78 17 100 32.8 171/81(119) NSR 0 (11) 10(A) , No pain 12:06:52 76 17 100 39.6 165/85(128) NSR 0 (11) 10(A) , No pain 12:11:34 87 12 98 1.4 142/64(98) NSR 0 (11) 10(A) , No pain 12:16:15 82 11 98 0 131/71(106) NSR 0 (11) 10(A) , No pain 12:21:14 98 9 39.6 Measuring NSR 0 (11) 10(A) , No pain 12:21:30 93 9 99 20.9 163/76(113) NSR 0 (11) 10(A) , No pain Medications Time Medication Route Dose Verified Delivered Reason Not es Effectiveness by by 12:02:01 0.9% NaCl I.V. 100 Krzysztof Krzysztof Per physician ml/hr Kiesha Pop RN RN 12:02:11 Oxygen etCO2 2 l/min Krzysztof Krzysztof Per physician Nasal Kiesha Pop cannula RN RN 12:02:22 Heparin Flush added 2 bags Krzysztof Krzysztof used for Bag to Lorigan Kiesha procedure (1000units/500ml field RN RN NS) 12:02:37 Lidocaine 2% added 20ml Krzysztof Krzysztof for local to vial Lorigan Lorigan anesthetic field RN RN 12:02:49 Radial Cocktail added 1 Krzysztof Krzysztof used for (Verapomil to syringe Lorigan Lorigan procedure 2mg/Nitro field RN RN 400mcg/Heparin 1500units) 12:05:08 Versed I.V. 1 mg Krzysztof Krzysztof for sedation Kiesha Pop RN RN 12:05:16 Fentanyl I.V. 50 mcg Krzysztof Krzysztof for sedation Kiesha Pop RN RN 12:07:47 Versed I.V. 0.5 mg Krzysztof Krzysztof for sedation Kiesha Pop RN RN 12:07:54 Fentanyl I.V. 25 mcg Krzysztof Krzysztof for sedation Kiesha Pop RN RN 12:08:44 Radial Cocktail I.A. 1 Krzysztof Damian for (Verapomil syringe Kiesha Bai MD vasodilation 2mg/Nitro RN 400mcg/Heparin 1500units) 12:09:50 Versed I.V. 0.5 mg Krzysztof Krzysztof for sedation Kiesha Pop RN RN 12:09:56 Fentanyl I.V. 25 mcg Krzysztof Krzysztof for sedation Kiesha Pop RN RN 12:15:05 Heparin Bolus I.V. 4000 Krzysztof Krzysztof for units Lorigan Kiesha anticoagulation RN RN 12:16:48 Integrilin I.V. 4.5 ml Krzysztof Krzysztof for (Bolus 2mg/ml) Kiesha Pop antiplatelet RN RN therapy 12:16:57 Integrilin wasted 5.5 ml Krzysztof Krzysztof to sharp's (Bolus 2mg/ml) Kiesha Pop RN RN 12:18:49 Plavix P.O. 600 mg Krzysztof Krzysztof for Kiesha Pop antiplatelet RN RN therapy Procedure Log Time Note 11::08 Time tracking: Regular hours (M-F 7:00 - 5:00) 11:11:13 Plan of Care:Hemodynamics will remain stable., Cardiac rhythm will remain stable., Comfort level will be maintained., Respiratory function will remain adequate., Patient/ family verbilizes understanding of procedure., Procedure tolerated without complication., Recovers from procedure without complications.. 11:39:57 Signed procedure consent form obtained from patient. 11:40:19 H&P Date Dictated: 02/19/2018 Within 30 days and on chart., H&P Addendum completed by physician on day of procedure. (MUST COMPLETE FOR ALL OUTPATIENTS). 11:41:01 Patient allergic to No known allergies 11:41:37 Lab Result : BUN 16 mg/dl 11:41:37 Lab Result : Creatinine 0.9 mg/dl 11:41:37 Lab Result : Hemoglobin 14.2 g/dl 11:45:12 Krzysztof Pop RN sent for patient. Start room use. 11:50:35 Patient received from Pre/Post Procedure Room to CCL 1 Alert and oriented. Tansferred to table in Supine position. 11:50:36 Warm blankets applied, and abril hugger turned on for patient comfort. 11:50:37 Correct patient and procedure confirmed by team. 11:50:38 ECG and BP/O2 sat monitors applied to patient. 12:01:04 Vital chart was started 12:01:05 Baseline sample Acquired. 12:01:09 Rhythm: sinus rhythm 12:01:10 Full Disclosure recording started 12:01:12 Pre-procedure instructions explained to patient. 12:01:12 Pre-op teaching completed and patient verbalized understanding. 12:01:14 Family in patients room. 12:01:15 Patient NPO since Midnight. 12:01:17 Is the patient allergic to Iodine/contrast media? No. 12:01:21 Is patient on blood thinner?No 12:01:23 Patient diabetic? Yes. 12:01:29 DIET CONTROLLED 12:01:33 Patient not . Patient is over age 55. 12:01:36 Previous problem with sedation/anesthesia? No ? 12:01:37 Snore? No 12:01:39 Sleep apnea? No 12:01:39 Deviated septum? No 12:01:45 Opens mouth fully? Yes 12:01:46 Sticks out tongue? Yes 12:01:47 Airway obstruction? No ? 12:01:49 Dentures? No ? 12:01:51 Modified Sylvester's test Ulnar < 7 seconds 12:01:53 Patient pain scale 0/10 ?. 12:01:59 IV patent on arrival in left forearm with 0.9% NaCl at [facility]. 12:02:01 0.9% NaCl 100 ml/hr I.V. was administered by Krzysztof Pop RN; Per physician; 12:02:11 Oxygen 2 l/min etCO2 Nasal cannula was administered by Krzysztof Pop RN; Per physician; 12:02:22 Heparin Flush Bag (1000units/500ml NS) 2 bags added to field was administered by Krzysztof Pop RN; used for procedure; 12:02:37 Lidocaine 2% 20ml vial added to field was administered by Krzysztof Pop RN; for local anesthetic; 12:02:49 Radial Cocktail (Verapomil 2mg/Nitro 400mcg/Heparin 1500units) 1 syringe added to field was administered by Krzysztof Pop RN; used for procedure; 12:03:05 Lab results completed and on chart. 12:03:08 Right Radial & Right Groin area was prepped with chlora-prep and draped in sterile fashion 12:03:12 Alarms reviewed by R. N. 12:03:12 Sharps counted by scrub and verified by R.N. 12:03:24 --------ALL STOP TIME OUT------ 12:03:25 Final Timeout: patient, procedure, and site verified with staff and physician. All members of the team are in agreement. 12:03:29 Right Radial & Right Groin site verified by team. 12:03:31 Physical assessment completed. ASA score P 2 - A patient with mild systemic disease as per Damian Bai MD. 12:03:36 Sedation plan: IV Moderate Sedation Medication:Versed, Fentanyl 12:03:39 Use device set Radial Dx or PCI 12:03:42 ACIST Syringe (84056) opened to sterile field. 12:03:43 Bag Decanter () opened to sterile field. 12:03:44 ACIST Hand Control (91340) opened to sterile field. 12:03:45 ACIST Manifold (07262) opened to sterile field. 12:03:46 Tegaderm 4 x 4 (1626W) opened to sterile field. 12:03:48 Medline Cath Pack ([id number]) opened to sterile field. 12:03:49 DIAGNOSTIC WIRE .035 260cm J wire (231836) opened to sterile field. 12:03:50 MBrace Wrist Support ([id number]) opened to sterile field. 12:03:51 SHEATH 6Fr Prelude Radial ([id number]) opened to sterile field. 12:05:08 Versed 1 mg I.V. was administered by Krzysztof Pop RN; for sedation; 12:05:16 Fentanyl 50 mcg I.V. was administered by Krzysztof Pop RN; for sedation; 12:07:35 Procedure started. 12:07:36 Zero performed for pressure channel P1 12:07:47 Versed 0.5 mg I.V. was administered by Krzysztof Pop RN; for sedation; 12:07:54 Fentanyl 25 mcg I.V. was administered by Krzysztof Pop RN; for sedation; 12:07:56 Local anesthetic to right radial artery with Lidocaine 2% by Damian Bai MD.INITIAL ACCESS ONLY 12:08:17 A 6 Fr Short sheath was inserted into the Right Radial artery 12:08:44 Radial Cocktail (Verapomil 2mg/Nitro 400mcg/Heparin 1500units) 1 syringe I.A. was administered by Damian Bai MD; for vasodilation; 12:08:45 A DIAGNOSTIC [place] 110cm 5 Fr catheter (254630) was advanced over the wire and used for Procedure. 12:09:40 Injector settings: Ml/sec: 7, Volume: 15, 12:09:48 LV gram done using BARR 12:09:50 Versed 0.5 mg I.V. was administered by Krzysztof Pop RN; for sedation; 12:09:56 Fentanyl 25 mcg I.V. was administered by Krzysztof Pop RN; for sedation; 12:10:10 EF : 60 % 12:10:41 LCA angiography performed. 12:11:19 RCA angiography performed. 12:11:22 Catheter removed. 12:11:56 INFLATOR Merit BasixCompak (TL1309) opened to sterile field. 12:12:02 GUIDE 6FR EBU 3.0 catheter ([id number]) opened to sterile field. 12:12:05 Zero performed for pressure channel P1 12:12:16 [place] IVUS Catheter (98156K) opened to sterile field. 12:12:21 CHOICE PT Extra Support 182cm wire ([id number]) opened to sterile field. 12:12:38 6 Fr EBU 3 guide catheter was inserted over the wire 12:13:11 CHOICE ES 182 wire advanced. 12:13:48 Wire advanced across lesion. 12:15:05 Heparin Bolus 4000 units I.V. was administered by Krzysztof Pop RN; for anticoagulation; 12:15:07 IVUS catheter advanced over wire. 12:15:09 IVUS pass to LAD lesion performed. 12:15:11 IVUS catheter removed over wire. 12:16:48 Integrilin (Bolus 2mg/ml) 4.5 ml I.V. was administered by Krzysztof Pop RN; for antiplatelet therapy; 12:16:51 Place stent Inflation Number: 1 A ANURADHA RX 3.0 x 22 stent ([id number]) was prepped and advanced across the Prox LAD. The stent was deployed at 13 STELLA for 0:10 (min:sec). 12:16:57 Integrilin (Bolus 2mg/ml) 5.5 ml wasted was administered by Krzysztof Pop RN; to sharp's; 12:17:42 Stent catheter was removed intact over wire. 12:17:42 Wire removed. 12:17:43 Guide catheter removed. 12:17:46 TR BAND Standard ([id number]) opened to sterile field. 12:17:52 Procedure ended.(Physican Out) 12:18:00 Sheath removed intact; hemostasis achieved with Mechanical Compression to the Right Radial artery. 12:18:49 Plavix 600 mg P.O. was administered by Krzysztof Pop RN; for antiplatelet therapy; 12:19:36 Fluoroscopy dose: 254 mGy 12:19:36 Flurop Dose total: 254 12:19:49 Contrast amount:Isovue 300 72ml. 12:19:50 Sharps counted by scrub and verified by R.N. 12:19:53 TR band inflated with 10cc of air. 12:20:00 Post-procedure physical assessment completed. ASA score P 2 - A patient with mild systemic disease as per Damian Bai MD. 12:20:11 Post procedure rhythm: unchanged. 12:20:12 Estimated blood loss: 10 ml 12:20:14 Post procedure instruction explained to patient.Patient verbalizes understanding. 12:20:14 Patient needs reinforcement of post procedure teaching. 12:20:30 Procedure type changed to Cath procedure, Diagnostic procedure, LHC, LHC w/Coronaries, FFR/IVUS, Intra-Coronary IVUS Initial, PCI procedure, Coronary Stent, Coronary Stent Initial 12:21:21 Procedure and supply charges have been captured, reviewed, submitted and are correct. 12:21:23 Procedure Complication : No complications 12:21:24 Vital chart was stopped 12:21:25 See physician's report for complete and final results. 12:21:26 Report given to Pre/Post Procedure Room. 12:21:29 Patient transfered to Pre/Post Procedure Room with Bed. 12:21:31 Procedure ended. 12:21:31 Full Disclosure recording stopped 12:21:36 End room use (Document Last) Intervention Summary Intervention Notes Time ActionType Lesion and Equipment Used Action# Pressure Duration Attributes 12:16:51 Place stent Prox LAD ANURADHA RX 3.0 x 1 13 00:10 22 stent ([id number]) Device Usage Item Name Manufacture Quantity Catalog Number Hospital Part Current Minimal Lot# / Charge Number Stock Stock Serial# Code ACIST Syringe Acist 1 59428 242732 043455 027564 20 (21734) [employer] Bag Decanter Microtek 1 2001S 490939 90888 419200 5 (2001S) Medical Inc. ACIST Hand Acist 1 94542 999342 469425 126961 5 Control (11302) [employer] Inc ACIST Manifold Acist 1 40901 663959 188463 304995 5 (24822) Medical Systems Inc Tegaderm 4 x 4 3M 1 1626W 799061 075593 590602 5 (1626W) Medline Cath Cardinal [address] [id number] 605[address] [facility] ([id number]) DIAGNOSTIC WIRE [place] 1 255056 661952 286907 079537 30 .035 260cm J wire (250212) MBrace Wrist Advanced 1 140-0250-00 799254 99747 932243 5 Support Vascular ([id number]) Dynamics SHEATH 6Fr Merit 1 [id number] 446566 334145 556850 5 Prelude Radial Medical ([id number]) DIAGNOSTIC Terumo 1 40-3944 708427 598997 806417 5 [place] 110cm 5 Fr catheter (995853) INFLATOR Merit Merit 1 PH2547 027489 092399 649631 15 [facility] (DJ4489) GUIDE 6FR EBU Medtronic 1 [id number] 449901 10268 270899 0 3.0 catheter ([id number]) [place] 1 79101G 449730 956383 046342 8 [place] IVUS Catheter (52155S) CHOICE PT Extra [place] 1 [id number] 514093 601044 692759 5 Support 182cm Scientific wire ([id number]) ANURADHA RX 3.0 x Medtronic 1 [id number] 843292 6856097 608794 5 [id number] 22 stent ([id number]) TR BAND Terumo 1 [id number] 851235 170410 613979 40 Standard ([id number]) Signature Audit [place] Stage Time Signature Unsigned Intra-Procedure 02/26/2018 Yudy Miles 12:23:21 PM RT(R) Signatures Monitor : Yudy Miles Signature : RT Date : Time : [place] [id number] [place] [address]
--- NOTE | ~2018-02-26 | OP ---
PATIENT NAME: JENNA MCGOWAN MEDICAL RECORD: [id number] :43 LOCATION:D.CAT ADMISSION DATE: SURGEON: CHAD FOSTER MD DATE OF OPERATION: 02/26/2018 PROCEDURES: 1. PTCA stent LAD. 2. Intravascular ultrasound of the LAD. 3. Left heart catheterization. 4. Selective coronary angiography. 5. Left ventriculogram. INDICATION: Angina and coronary artery disease. PROCEDURE IN DETAIL: After informed consent was obtained and after a detailed description of risks, benefits as well as alternative therapies, the patient elected to proceed with angiogram and angioplasty. The right radial area was prepped and draped in normal sterile fashion. Right radial artery was cannulated via modified Seldinger technique with placement of 6-Tajik sheath. All catheters exchanged through this sheath. FINDINGS: Left ventriculogram was performed in standard 30-degree BARR view, reveals good cardiac wall motion, ejection fraction 60%. SELECTIVE CORONARY ANGIOGRAPHY: 1. Left main is with no significant angiographic disease. 2. Left anterior descending has greater than 80% stenosis throughout the proximal vessel confirmed by intravascular ultrasound. 3. Left circumflex has moderate irregularities, but no flow-limiting stenosis. 4. Right coronary artery has moderate irregularities, but no flow-limiting stenosis. Previously placed stents in the circumflex and RCA are widely patent. PTCA STENT OF THE LAD: The stent used 3.0 x 22 mm Sahil. Result was 0% residual stenosis. OVERALL IMPRESSION: Successful percutaneous transluminal coronary angioplasty stent of the right coronary artery going from 80% initial stenosis to 0% residual. TRANSINT:[id number] Voice Confirmation ID: [id number] DOCUMENT ID: [id number] CHAD FOSTER MD at 1705 CC: [id number] DICTATION DATE: 02/26/18 1221 [employer]ER SURVEYING: 02/26/18 1418 [facility] CLI 02/26/18 [place] [id number]
[~2018-02-26 08:47] MED LIST changes: +LEXAPRO10 MG PO; +NITROQUICK0.4 MG SL; +PROTONIX40 MG PO
[2018-02-26 09:53] VITALS: BP 190/88; Ht 147.3 cm; Wt 47.7 kg
[2018-02-26 10:24] LABS: BASOPHILS 0.4 % (0-2); EOSINOPHILS 2.6 % (0-7); HEMATOCRIT 41.1 % (36.0-48.0); HEMOGLOBIN 14.2 g/dL (12-16); IMMATURE GRANULOCYTES 0.1 % (0-5); LYMPHOCYTES 35.1 % (15-50); MCH 29.5 pg (26.0-34.0); MCHC 34.5 g/dL (31.0-37.0); MCV 85.3 fL (80.0-100.0); MEAN PLATELET VOLUME 10.6 fL (7.4-10.4); MONOCYTES 8.7 % (2-11); NEUTROPHILS 53.1 % (40-80); RBC 4.82 10x6/uL (4.00-5.40); RDW 13.3 % (11.5-14.5)
[2018-02-26 10:31] LABS: ANION GAP 14.6 mmol/L (8-16); CALCIUM 8.9 mg/dL (8.5-10.1); CARBON DIOXIDE 27.2 mmol/L (21.0-32.0); CREATININE - SERUM 0.9 mg/dL (0.6-1.3); POTASSIUM - SERUM 3.8 mmol/L (3.5-5.1)
[2018-02-26 10:36] LABS: PLATELET COUNT 132 10x3/uL (130-400)
== END | disposition home or self-care (01) ==
LOC: D.CATH 08:47
PROVIDERS: Internal Medicine Interventional Cardiology
DX: I25.119 Atherosclerotic heart disease of native coronary artery with unspecified angina pectoris (principal); Z95.5 Presence of coronary angioplasty implant and graft; Z01.812 Encounter for preprocedural laboratory examination
CPT/HCPCS: 93458; 92978; C9600

== ENCOUNTER 2018-07-03 11:48 | Outpatient (CLI) | payer MEDICARE, OTHER ==
[~2018-07-03] VITALS: Ht 147.3 cm; Wt 48.6 kg
[2018-07-03 12:12] VITALS: BP 131/71; Ht 147.3 cm; Wt 48.6 kg
== END 2018-07-03 12:35 | disposition home or self-care (01) ==
LOC: D.OPS 11:48
DX: M81.0 Age-related osteoporosis without current pathological fracture (principal); Z01.812 Encounter for preprocedural laboratory examination

== ENCOUNTER 2019-06-26 12:47 | Outpatient (CLI) | payer MEDICARE, OTHER ==
[~2019-06-26] VITALS: Ht 144.8 cm; Wt 50.0 kg
[2019-06-26 13:28] VITALS: BP 116/79; Ht 144.8 cm; Wt 50.0 kg
== END 2019-06-26 13:44 | disposition home or self-care (01) ==
LOC: D.OPS 12:47
PROVIDERS: ATTEND Family Medicine
DX: M81.0 Age-related osteoporosis without current pathological fracture (principal)

== ENCOUNTER 2020-05-28 12:34 | Outpatient (CLI) | payer MEDICARE, OTHER ==
[~2020-05-28] VITALS: Ht 144.8 cm; Wt 49.1 kg
[2020-05-28 12:48] VITALS: BP 175/89; Ht 144.8 cm; Wt 49.1 kg
== END 2020-05-28 13:20 | disposition home or self-care (01) ==
LOC: D.OPS 12:34
PROVIDERS: ATTEND Family Medicine
DX: M81.0 Age-related osteoporosis without current pathological fracture (principal)

== ENCOUNTER 2020-06-24 10:31 | Emergency (ER) | payer MEDICARE, OTHER ==
[~2020-06-24] VITALS: Ht 144.8 cm; Wt 49.0 kg
[2020-06-24 10:52] VITALS: Ht 144.8 cm; Wt 49.0 kg
[2020-06-24] MEDS ORDERED: MAGNESIUM OXID250 MG PO (10:56)
[2020-06-24 11:23] LABS: BASOPHILS 0.3 % (0-2); EOSINOPHILS 1.8 % (0-7); HEMATOCRIT 41.1 % (36.0-48.0); HEMOGLOBIN 14.3 g/dL (12-16); IMMATURE GRANULOCYTES 0.4 % (0-5); LYMPHOCYTES 33.2 % (15-50); MCH 31.3 pg (26.0-34.0); MCHC 34.8 g/dL (31.0-37.0); MCV 89.9 fL (80.0-100.0); MEAN PLATELET VOLUME 10.7 fL (7.4-10.4); MONOCYTES 8.2 % (2-11); NEUTROPHILS 56.1 % (40-80); PLATELET COUNT 125 10x3/uL (130-400); RBC 4.57 10x6/uL (4.00-5.40); RDW 12.6 % (11.5-14.5); WBC 7.2 10x3/uL (4.8-10.8)
[2020-06-24 11:29] LABS: INR 0.91 (0.85-1.17); PROTIME 12.3 SECONDS (11.6-15.0)
[2020-06-24 11:30] LABS: APTT 27.9 SECONDS (22.8-39.4)
[2020-06-24 11:33] LABS: CALC OSMOLALITY 284 mosm/kg (275-300); CALCIUM 8.6 mg/dL (8.5-10.1); CARBON DIOXIDE 27.7 mmol/L (21.0-32.0); CHLORIDE - SERUM 104 mmol/L (98-107); CREATININE - SERUM 0.9 mg/dL (0.6-1.3); GLUCOSE 132 mg/dL (74-106); POTASSIUM - SERUM 4.1 mmol/L (3.5-5.1); SODIUM 141 mmol/L (136-145); UREA NITROGEN 19 mg/dL (7-18); eGFR NON AFRICAN AMERICAN 64 mL/min (90-120)
[2020-06-24 11:50] LABS: ALBUMIN 4.1 g/dL (3.4-5.0); ALKALINE PHOSPHATASE 142 U/L (30-120); ALT (SGPT) 50 U/L (10-68); BILIRUBIN - TOTAL 0.65 mg/dL (0.2-1.3); CKMB 3.6 U/L (0.0-3.6); CREATINE KINASE 144 UL (21-215); MAGNESIUM - SERUM 2.1 mg/dL (1.8-2.4); THYROID STIMULATING HORMONE 3.53 uIU/mL (0.36-3.74); TROPONIN-I < 0.017 ng/mL (0.000-0.060)
[2020-06-24 14:23] LABS: BILIRUBIN NEGATIVE (NEGATIVE); KETONE NEGATIVE (NEGATIVE); NITRITE NEGATIVE (NEGATIVE); UROBILINOGEN NORMAL mg/dL (< 2)
[2020-06-24 14:26] LABS: UDS - AMPHET NEGATIVE QUAL (NEGATIVE); UDS - BARB NEGATIVE QUAL (NEGATIVE); UDS - BENZO NEGATIVE QUAL (NEGATIVE); UDS - COCAINE NEGATIVE QUAL (NEGATIVE); UDS - OPIATE NEGATIVE QUAL (NEGATIVE); UDS - PCP NEGATIVE QUAL (NEGATIVE); UDS - THC NEGATIVE QUAL (NEGATIVE)
[2020-06-25 00:13] VITALS: BP 121/68
== END 2020-06-24 23:50 | disposition other institution (70) ==
LOC: D.ER 10:31
PROVIDERS: Family Medicine
DX: I63.81 Other cerebral infarction due to occlusion or stenosis of small artery (principal); R26.2 Difficulty in walking, not elsewhere classified; R53.1 Weakness; E11.9 Type 2 diabetes mellitus without complications; I10 Essential (primary) hypertension; R20.0 Anesthesia of skin

== ENCOUNTER 2020-11-17 12:39 | Outpatient (CLI) | payer MEDICARE, OTHER ==
[~2020-11-17] VITALS: Ht 144.8 cm; Wt 45.5 kg
[~2020-11-17 12:39] MED LIST changes: +MAGNESIUM OXID250 MG PO
[2020-11-17 13:06] VITALS: BP 138/66; Ht 144.8 cm; Wt 45.5 kg
--- NOTE | 2020-11-17 13:28 | NUR ---
PT LEAVING OPS AT THIS TIME, NAD NOTED.
== END 2020-11-17 13:28 | disposition home or self-care (01) ==
LOC: D.OPS 12:39
PROVIDERS: ATTEND Family Medicine
DX: M81.0 Age-related osteoporosis without current pathological fracture (principal)